=== PATIENT | female | born 1990 | race Caucasian/White ===

== ENCOUNTER 2022-10-06 00:02 | Inpatient (IN) | payer SELFPAY ==
[2022-10-06 01:05] VITALS: BMI 25.8
[2022-10-06] MEDS ORDERED: LACTATED RINGERS SOLUTION 1000 ML INFUS.BAG IV ONE ×2 (02:17→05:21)
[2022-10-06 02:46] LABS: BASO % 0.7 % (0-2.0); EOS % 0.4 % (0-4.5); LYMPH % 23.5 % (8-40); MCHC 34.2 g/dl (32.0-36.0); MEAN CELL VOLUME 87.5 fl (80-96); MEAN PLT VOLUME 8.2 fl (7.5-11.1); MONO % 6.4 % (3.8-10.2); PLATELET COUNT 332 10^3/uL (134-434); RBC 4.34 M/mm3 (3.60-5.2); RDW 12.6 % (11.6-15.6); WHITE BLOOD COUNT 10.8 K/mm3 (4.0-10.0)
[2022-10-06 03:13] LABS: CALCIUM 8.9 mg/dL (8.5-10.1)
[2022-10-06 03:14] LABS: ALBUMIN 3.8 g/dl (3.4-5.0); BLOOD UREA NITROGEN 10.8 mg/dL (7-18)
[2022-10-06 03:17] LABS: CREATININE 0.5 mg/dL (0.55-1.3)
[2022-10-06 03:19] LABS: BILIRUBIN,TOTAL 0.5 mg/dL (0.2-1); TOT PROT 7.4 g/dl (6.4-8.2)
[2022-10-06] MEDS ORDERED: KETOROLAC TROMETHAMINE 15 MG/ML VIAL IVPUSH ONE ×2 (04:29→05:21)
[2022-10-06] MEDS ORDERED: morphine CARPU-JECT 2 MG/1 ML DISP.SYRIN IVPUSH ONE (04:30)
[2022-10-06] MEDS ORDERED: ACETAMINOPHEN 1000 MG/100 ML BAG IVPB ONE (04:45)
[2022-10-06] MEDS ORDERED: KETOROLAC TROMETHAMINE 15 MG/ML VIAL ONE (05:12)
[2022-10-06 06:55] LABS: EPI CELLS 4 /uL (0-25.1); HYALINE CASTS 0 /uL (0-3.1); URINE APPEARANCE CLEAR; URINE BACTERIA >9,000 /uL (0-1359); URINE BILIRUBIN NEGATIVE (NEGATIVE); URINE COLOR YELLOW; URINE GLUCOSE (UA) NEGATIVE (NEGATIVE); URINE KETONE NEGATIVE (NEGATIVE); URINE LEUK ESTERASE TRACE (NEGATIVE); URINE NITRITE NEGATIVE (NEGATIVE); URINE PROTEIN NEGATIVE (NEGATIVE); URINE RBC 215 /uL (0-23.9); URINE UROBILINOGEN 0.2 mg/dL (0.2-1.0); URINE WBC 179 /uL (0-25.8)
[2022-10-06 07:07] LABS: HCG,QUALITATIVE URINE Negative
[2022-10-06] MEDS ORDERED: KETOROLAC TROMETHAMINE 15 MG/ML VIAL IVPUSH PRN (07:43)
[2022-10-06] MEDS ORDERED: ACETAMINOPHEN 1000 MG/100 ML BAG IVPB PRN ×2 (07:43→18:56)
[2022-10-06] MEDS ORDERED: CEFTRIAXONE 1 GM in DEXTROSE 5%-WATER - 50 ML IVPB SCH (07:44)
[2022-10-06] MEDS ORDERED: ACETAMINOPHEN INJECTION 100 ML IVPB ONE (08:22)
[2022-10-06] MEDS ORDERED: ONDANSETRON 4 MG/2 ML VIAL IVPUSH PRN ×4 (08:29→18:56)
[2022-10-06] MEDS ORDERED: TAMSULOSIN HCL 0.4 MG CAP PO SCH (08:30)
[2022-10-06] MEDS ORDERED: CEFTRIAXONE 1 GM/50 ML BAG ONE (08:38)
[2022-10-06] MEDS ORDERED: ONDANSETRON 4 MG/2 ML VIAL ONE ×2 (08:47→18:19)
[2022-10-06] MEDS ORDERED: PROMETHAZINE HCL 25 MG/1 ML VIAL IVPUSH PRN ×2 (16:39→18:56)
[2022-10-06] MEDS ORDERED: LACTATED RINGERS SOLUTION 1,000 ML IV SCH (16:45)
[2022-10-06] MEDS ORDERED: LIDOCAINE HCL/PF 2% SDV 5ML VIAL ONE (17:04)
[2022-10-06] MEDS ORDERED: PROPOFOL 20 ML ONE (17:04)
[2022-10-06] MEDS ORDERED: MIDAZOLAM HCL 2 MG/2 ML SINGLE DOSE VIAL ONE (17:44)
[2022-10-06] MEDS ORDERED: FENTANYL CITRATE/PF 50 MCG/ML VIAL ONE ×3 (17:44→19:41)
[2022-10-06] MEDS ORDERED: GLYCOPYRROLATE 0.2 MG/1 ML VIAL ONE (17:45)
[2022-10-06] MEDS ORDERED: SODIUM CHLORIDE 1,000 ML IV SCH (18:00)
[2022-10-06] MEDS ORDERED: GENTAMICIN SO4 80 MG/2 ML VIAL ONE (18:01)
[2022-10-06] MEDS ORDERED: GENTAMICIN SO4 80 MG/2 ML VIAL IVPB ONE (18:10)
[2022-10-06] MEDS ORDERED: DEXAMETHASONE SOD PHOSPHATE 4 MG/1 ML VIAL ONE (18:19)
[2022-10-06] MEDS ORDERED: KETOROLAC TROMETHAMINE 30 MG/1 ML VIAL ONE (18:19)
[2022-10-07] MEDS: KETOROLAC TROMETHAMINE 15 MG/ML VIAL IVPUSH PRN ×3 (06:01→22:12)
[2022-10-07] MEDS: SODIUM CHLORIDE 1,000 ML IV SCH ×2 (06:01→22:12)
[2022-10-07 09:31] LABS: HEMATOCRIT 30.6 % (32.4-45.2); HEMOGLOBIN 10.5 GM/dL (10.7-15.3); MCH 30.4 pg (25.7-33.7); MCHC 34.3 g/dl (32.0-36.0); MEAN CELL VOLUME 88.6 fl (80-96); MEAN PLT VOLUME 8.3 fl (7.5-11.1); PLATELET COUNT 220 10^3/uL (134-434); RBC 3.46 M/mm3 (3.60-5.2); RDW 13.1 % (11.6-15.6); WHITE BLOOD COUNT 21.5 K/mm3 (4.0-10.0)
[2022-10-07 10:06] LABS: ANISOCYTOSIS 0; HELMET CELLS 0; HOWELL-JOLLY BODIES 0; MACROCYTOSIS 0; OVALOCYTE 0; ROULEAU 0; SICKELED CELLS 0; TARGET CELLS 0; TEAR DROP CELLS 0; TOXIC GRANULATION 0
[2022-10-07 10:33] LABS: BLOOD UREA NITROGEN 10.5 mg/dL (7-18); CALCIUM 8.4 mg/dL (8.5-10.1)
[2022-10-07 10:36] LABS: CREATININE 0.7 mg/dL (0.55-1.3); PHOSPHOROUS 2.8 mg/dL (2.5-4.9)
[2022-10-07] MEDS: CEFTRIAXONE 1 GM in DEXTROSE 5%-WATER - 50 ML IVPB SCH (12:33)
[2022-10-07 22:10] VITALS: RESP 18
[2022-10-08] MEDS: KETOROLAC TROMETHAMINE 15 MG/ML VIAL IVPUSH PRN (05:39)
[2022-10-08 06:14] VITALS: BP 114/69; PULSE 75; TEMP 98.5
[2022-10-08] MEDS: CEFTRIAXONE 1 GM in DEXTROSE 5%-WATER - 50 ML IVPB SCH (09:13)
[2022-10-08] MEDS ORDERED: IBUPROFEN 600 MG TABLET (FP) PO PRN (09:13)
[2022-10-08 09:42] LABS: BASO % 0.2 % (0-2.0); EOS % 0.4 % (0-4.5); HEMATOCRIT 29.3 % (32.4-45.2); HEMOGLOBIN 9.9 GM/dL (10.7-15.3); LYMPH % 21.4 % (8-40); MCH 29.5 pg (25.7-33.7); MCHC 33.9 g/dl (32.0-36.0); MONO % 8.3 % (3.8-10.2); NEUT % 69.7 % (42.8-82.8); PLATELET COUNT 222 10^3/uL (134-434); RBC 3.37 M/mm3 (3.60-5.2); RDW 12.7 % (11.6-15.6); WHITE BLOOD COUNT 11.9 K/mm3 (4.0-10.0)
[2022-10-08 09:56] LABS: BLOOD UREA NITROGEN 11.9 mg/dL (7-18); CALCIUM 8.1 mg/dL (8.5-10.1); MAGNESIUM 1.8 mg/dL (1.8-2.4)
[2022-10-08 09:59] LABS: CREATININE 0.5 mg/dL (0.55-1.3); PHOSPHOROUS 2.8 mg/dL (2.5-4.9)
[2022-10-08 10:01] LABS: BILIRUBIN,TOTAL 0.3 mg/dL (0.2-1); TOT PROT 5.5 g/dl (6.4-8.2)
[2022-10-08 10:10] LABS: ALBUMIN 2.6 g/dl (3.4-5.0)
== END 2022-10-08 02:30 | disposition home or self-care (01) | DRG 463 ==
LOC: JER 00:02 → JERBED 05:27 → OBSVTOIN 07:40 → J7W 09:07
PROVIDERS: ADMIT Internal Medicine; ATTEND Internal Medicine
PROC: 0T768DZ Dilation of Right Ureter with Intraluminal Device, Via Natural or Artificial Opening Endoscopic (ICD-10-PCS; 2022-10-06)
PROC: 0TJB8ZZ Inspection of Bladder, Via Natural or Artificial Opening Endoscopic (ICD-10-PCS; principal; 2022-10-06 17:30)
PROC: BT0BZZZ Plain Radiography of Bladder and Urethra (ICD-10-PCS; 2022-10-06 17:30)
DX: N13.6 Pyonephrosis (principal); N39.0 Urinary tract infection, site not specified
CPT/HCPCS: 0241U-QW; 36415; 74177-TC; 76000-TC-FY; 76830-TC; 80048; 80053; 81003; 83735; 84100; 84703; 85025; 87086; 87186; 93005; 93010; 94760; 99285-25; C2617; G0378

== ENCOUNTER 2023-01-24 11:03 | Inpatient (IN) | payer OTHER ==
[2023-01-24] MEDS ORDERED: morphine CARPU-JECT 2 MG/1 ML DISP.SYRIN IVPUSH ONE ×2 (12:37→15:49)
[2023-01-24] MEDS ORDERED: SODIUM CHLORIDE 0.9% 500 ML INFUS.BAG IV ONE (12:37)
[2023-01-24 12:58] LABS: BASO % 0.2 % (0-2.0); HEMATOCRIT 36.5 % (32.4-45.2); HEMOGLOBIN 12.6 GM/dL (10.7-15.3); LYMPH % 10.2 % (8-40); MCH 29.2 pg (25.7-33.7); MCHC 34.6 g/dl (32.0-36.0); MEAN CELL VOLUME 84.6 fl (80-96); MEAN PLT VOLUME 8.2 fl (7.5-11.1); MONO % 10.1 % (3.8-10.2); NEUT % 79.5 % (42.8-82.8); PLATELET COUNT 254 10^3/uL (134-434); RBC 4.32 M/mm3 (3.60-5.2); RDW 12.9 % (11.6-15.6); WHITE BLOOD COUNT 8.6 K/mm3 (4.0-10.0)
[2023-01-24 13:05] LABS: EPI CELLS >36 /uL (0-25.1); HYALINE CASTS 2 /uL (0-3.1); URINE APPEARANCE TURBID; URINE BACTERIA >9,000 /uL (0-1359); URINE BILIRUBIN NEGATIVE (NEGATIVE); URINE COLOR YELLOW; URINE GLUCOSE (UA) NEGATIVE (NEGATIVE); URINE KETONE TRACE (NEGATIVE); URINE LEUK ESTERASE 3+ (NEGATIVE); URINE NITRITE NEGATIVE (NEGATIVE); URINE PROTEIN 2+ (NEGATIVE); URINE RBC 220 /uL (0-23.9); URINE UROBILINOGEN 0.2 mg/dL (0.2-1.0); URINE WBC 3832 /uL (0-25.8)
[2023-01-24] MEDS ORDERED: ACETAMINOPHEN 1000 MG/100 ML BAG IVPB ONE (13:14)
[2023-01-24] MEDS ORDERED: CEFTRIAXONE 1 GM in DEXTROSE 5%-WATER - 100 ML IVPB ONE (13:14)
[2023-01-24] MEDS ORDERED: ACETAMINOPHEN INJECTION 100 ML IVPB ONE (13:15)
[2023-01-24] MEDS ORDERED: CEFTRIAXONE 1 GM/50 ML BAG ONE (13:19)
[2023-01-24 13:21] LABS: CALCIUM 8.9 mg/dL (8.5-10.1)
[2023-01-24 13:22] LABS: ALBUMIN 3.8 g/dl (3.4-5.0); BLOOD UREA NITROGEN 8.5 mg/dL (7-18)
[2023-01-24 13:25] LABS: CREATININE 0.6 mg/dL (0.55-1.3)
[2023-01-24 13:27] LABS: BILIRUBIN,TOTAL 0.6 mg/dL (0.2-1); TOT PROT 7.7 g/dl (6.4-8.2)
[2023-01-24] MEDS ORDERED: TAMSULOSIN HCL 0.4 MG CAP PO ONE (15:50)
[2023-01-24] MEDS ORDERED: KETOROLAC TROMETHAMINE 30 MG/1 ML VIAL IVPUSH ONE (15:50)
[2023-01-24] MEDS ORDERED: TAMSULOSIN HCL 0.4 MG CAP ONE (15:52)
[2023-01-24] MEDS ORDERED: KETOROLAC TROMETHAMINE 30 MG/1 ML VIAL ONE (15:53)
[2023-01-24] MEDS ORDERED: KETOROLAC TROMETHAMINE 15 MG/ML VIAL IVPUSH PRN (17:15)
[2023-01-24] MEDS ORDERED: SODIUM CHLORIDE 1,000 ML IV SCH (17:15)
[2023-01-24] MEDS ORDERED: morphine CARPU-JECT 2 MG/1 ML DISP.SYRIN IVPUSH PRN (17:15)
[2023-01-24] MEDS ORDERED: ONDANSETRON 4 MG/2 ML VIAL IVPUSH PRN (17:15)
[2023-01-25 01:13] VITALS: BMI 24.2
[2023-01-25] MEDS ORDERED: ACETAMINOPHEN 1000 MG/100 ML BAG IVPB PRN ×2 (07:52→17:21)
[2023-01-25 08:46] LABS: INR 1.32 (0.83-1.09); PROTHROMBIN TIME (PATIENT) 15.3 SEC (9.7-13.0)
[2023-01-25 08:49] LABS: ACTIVATED PTT 25.2 SECONDS (25.2-36.5)
[2023-01-25 09:02] LABS: BASO % 0.3 % (0-2.0); EOS % 0.1 % (0-4.5); HEMOGLOBIN 10.9 GM/dL (10.7-15.3); LYMPH % 23.5 % (8-40); MCH 29.2 pg (25.7-33.7); MCHC 34.1 g/dl (32.0-36.0); MEAN CELL VOLUME 85.7 fl (80-96); MEAN PLT VOLUME 8.2 fl (7.5-11.1); MONO % 10.6 % (3.8-10.2); NEUT % 65.5 % (42.8-82.8); PLATELET COUNT 214 10^3/uL (134-434); RBC 3.74 M/mm3 (3.60-5.2); RDW 12.9 % (11.6-15.6); WHITE BLOOD COUNT 7.3 K/mm3 (4.0-10.0)
[2023-01-25 09:03] LABS: MAGNESIUM 1.9 mg/dL (1.8-2.4)
[2023-01-25 09:04] LABS: BLOOD UREA NITROGEN 10.5 mg/dL (7-18)
[2023-01-25 09:06] LABS: CREATININE 0.6 mg/dL (0.55-1.3); PHOSPHOROUS 2.1 mg/dL (2.5-4.9)
[2023-01-25 09:08] LABS: BILIRUBIN,TOTAL 0.7 mg/dL (0.2-1); TOT PROT 6.6 g/dl (6.4-8.2)
[2023-01-25] MEDS ORDERED: CEFTRIAXONE 1 GM in DEXTROSE 5%-WATER - 50 ML IVPB SCH (10:00)
[2023-01-25] MEDS ORDERED: PROMETHAZINE HCL 25 MG/1 ML VIAL IVPB PRN ×2 (16:21→17:21)
[2023-01-25] MEDS ORDERED: oxyCODONE HCL 5 MG TABLET PO PRN ×4 (16:21→17:21)
[2023-01-25] MEDS ORDERED: PROPOFOL 20 ML ONE ×2 (16:25→16:48)
[2023-01-25] MEDS ORDERED: LACTATED RINGERS SOLUTION 1,000 ML IV SCH (16:30)
[2023-01-25] MEDS ORDERED: ceFAZolin SODIUM 1 GM VIAL ONE (16:35)
[2023-01-25] MEDS ORDERED: ONDANSETRON 4 MG/2 ML VIAL ONE (16:35)
[2023-01-25] MEDS ORDERED: LIDOCAINE HCL/PF 2% SDV 5ML VIAL ONE (16:35)
[2023-01-25] MEDS ORDERED: ceFAZolin SODIUM 1 GM VIAL IVPB ONE (16:35)
[2023-01-25] MEDS ORDERED: DEXAMETHASONE SOD PHOSPHATE 4 MG/1 ML VIAL ONE (16:35)
[2023-01-25] MEDS ORDERED: KETOROLAC TROMETHAMINE 15 MG/ML VIAL IVPUSH PRN (17:21)
[2023-01-25] MEDS ORDERED: ONDANSETRON 4 MG/2 ML VIAL IVPUSH PRN (17:21)
[2023-01-25] MEDS: LACTATED RINGERS SOLUTION 1,000 ML IV SCH (18:05)
[2023-01-25] MEDS ORDERED: MELATONIN 5 MG TABLETS PO ONE (21:57)
[2023-01-26] MEDS: LACTATED RINGERS SOLUTION 1,000 ML IV SCH ×2 (03:17→12:19)
[2023-01-26 09:47] LABS: BASO % 0.1 % (0-2.0); HEMATOCRIT 31.6 % (32.4-45.2); LYMPH % 21.2 % (8-40); MCH 29.5 pg (25.7-33.7); MEAN CELL VOLUME 84.4 fl (80-96); MEAN PLT VOLUME 8.7 fl (7.5-11.1); MONO % 6.9 % (3.8-10.2); NEUT % 71.8 % (42.8-82.8); PLATELET COUNT 218 10^3/uL (134-434); RBC 3.74 M/mm3 (3.60-5.2); RDW 12.6 % (11.6-15.6); WHITE BLOOD COUNT 6.3 K/mm3 (4.0-10.0)
[2023-01-26] MEDS ORDERED: CEFTRIAXONE 1 GM in DEXTROSE 5%-WATER - 50 ML IVPB SCH (10:00)
[2023-01-26 10:08] LABS: CALCIUM 8.6 mg/dL (8.5-10.1)
[2023-01-26 10:12] LABS: CREATININE 0.5 mg/dL (0.55-1.3)
[2023-01-26 10:16] LABS: BLOOD UREA NITROGEN 10.5 mg/dL (7-18)
[2023-01-26 15:23] VITALS: BP 103/59; PULSE 84; RESP 18; TEMP 98.1
[2023-01-26] MEDS ORDERED: AMOX TR/POT CLAV 875MG/125MG TABLETS (FP) PO SCH (17:30)
== END 2023-01-26 17:28 | disposition home or self-care (01) | DRG 443 ==
LOC: JER 11:03 → INTOOBSV 16:13 → UNDOADMOB 16:13 → JERBED 16:13 → J5S 20:11 → JERBED 20:11 → OBSVTOIN 01-25 13:41
PROVIDERS: ADMIT Internal Medicine; ATTEND Internal Medicine
PROC: 0TP98DZ Removal of Intraluminal Device from Ureter, Via Natural or Artificial Opening Endoscopic (ICD-10-PCS; principal; 2023-01-25 15:00)
PROC: 0T768DZ Dilation of Right Ureter with Intraluminal Device, Via Natural or Artificial Opening Endoscopic (ICD-10-PCS; 2023-01-25 15:00)
DX: N13.6 Pyonephrosis (principal); D64.9 Anemia, unspecified
CPT/HCPCS: 36415; 74176-TC; 76000-TC-FY; 80048; 80053; 81003; 83605; 83735; 84100; 84703; 85025; 85610; 85730; 87040; 87077; 87086; 93005; 93010; 94760; 99285-25; C1758; C2617; C9803-CS; G0378; U0003; U0005

== ENCOUNTER 2023-12-08 23:31 | Inpatient (IN) | payer OTHER ==
[2023-12-09] MEDS ORDERED: ONDANSETRON 4 MG/2 ML VIAL ONE (00:50)
[2023-12-09] MEDS ORDERED: ACETAMINOPHEN INJECTION 100 ML IVPB ONE (00:50)
[2023-12-09 00:52] LABS: EPI CELLS 8 /uL (0-25.1); HYALINE CASTS 1 /uL (0-3.1); PH,URINE 6.5 (5.0-8.0); URINE APPEARANCE CLOUDY; URINE BACTERIA 2533 /uL (0-1359); URINE BILIRUBIN NEGATIVE (NEGATIVE); URINE COLOR YELLOW; URINE GLUCOSE (UA) NEGATIVE (NEGATIVE); URINE KETONE NEGATIVE (NEGATIVE); URINE LEUK ESTERASE 3+ (NEGATIVE); URINE NITRITE POSITIVE (NEGATIVE); URINE PROTEIN TRACE (NEGATIVE); URINE RBC 20 /uL (0-23.9); URINE UROBILINOGEN 0.2 mg/dL (0.2-1.0); URINE WBC 343 /uL (0-25.8)
[2023-12-09 00:54] LABS: BASO % 0.8 % (0-2.0); HEMATOCRIT 38.7 % (32.4-45.2); MCH 29.2 pg (25.7-33.7); MCHC 33.7 g/dl (32.0-36.0); MEAN CELL VOLUME 86.6 fl (80-96); MEAN PLT VOLUME 8.4 fl (7.5-11.1); MONO % 6.1 % (3.8-10.2); NEUT % 50.1 % (42.8-82.8); PLATELET COUNT 277 10^3/uL (134-434); RBC 4.47 M/mm3 (3.60-5.2); RDW 12.6 % (11.6-15.6); WHITE BLOOD COUNT 8.5 K/mm3 (4.0-10.0)
[2023-12-09] MEDS: ACETAMINOPHEN 1000 MG/100 ML BAG IVPB ONE (00:57)
[2023-12-09] MEDS: ONDANSETRON 4 MG/2 ML VIAL IVPUSH ONE (00:57)
[2023-12-09] MEDS ORDERED: morphine SULFATE 4 MG/ML VIAL ONE (01:16)
[2023-12-09] MEDS ORDERED: CEFTRIAXONE 1 GM/50 ML BAG ONE (01:16)
[2023-12-09] MEDS ORDERED: FAMOTIDINE 20 MG/50 ML IVPB 20 MG/50 ML MG IVPB ONE (01:16)
[2023-12-09] MEDS: morphine CARPU-JECT 4 MG/1 ML DISP.SYRIN IVPUSH ONE ×2 (01:27→12:41)
[2023-12-09] MEDS: CEFTRIAXONE 1,000 MG in DEXTROSE 5%-WATER - 50 ML IVPB ONE (01:27)
[2023-12-09 01:44] LABS: POTASSIUM 4.2 mmol/L (3.5-5.1)
[2023-12-09 01:48] LABS: ALBUMIN 3.7 g/dl (3.4-5.0); BLOOD UREA NITROGEN 9.4 mg/dL (7-18)
[2023-12-09 01:50] LABS: PHOSPHOROUS 4.2 mg/dL (2.5-4.9)
[2023-12-09 01:51] LABS: CREATININE 0.7 mg/dL (0.55-1.3)
[2023-12-09 01:52] LABS: BILIRUBIN,TOTAL 0.2 mg/dL (0.2-1); TOT PROT 7.8 g/dl (6.4-8.2)
[2023-12-09] MEDS: FAMOTIDINE 20 MG/50 ML IVPB 20 MG/50 ML MG IVPB ONE (01:52)
[2023-12-09] MEDS: SODIUM CHLORIDE 0.9% 500 ML INFUS.BAG IV ONE (02:18)
[2023-12-09] MEDS ORDERED: KETOROLAC TROMETHAMINE 15 MG/ML VIAL ONE (11:39)
[2023-12-09] MEDS: LACTATED RINGERS SOLUTION 1,000 ML/1,000 ML INFUS.BAG IV SCH (11:47)
[2023-12-09 15:08] VITALS: BMI 25.4
[2023-12-09] MEDS: ACETAMINOPHEN 500 MG TABLET (FP) PO PRN (19:50)
[2023-12-10 09:28] LABS: BASO % 0.5 % (0-2.0); HEMATOCRIT 35.4 % (32.4-45.2); HEMOGLOBIN 12.1 GM/dL (10.7-15.3); MCH 29.4 pg (25.7-33.7); MCHC 34.2 g/dl (32.0-36.0); MEAN CELL VOLUME 86.2 fl (80-96); MEAN PLT VOLUME 8.8 fl (7.5-11.1); MONO % 5.6 % (3.8-10.2); NEUT % 53.9 % (42.8-82.8); PLATELET COUNT 248 10^3/uL (134-434); RBC 4.11 M/mm3 (3.60-5.2); RDW 12.6 % (11.6-15.6); WHITE BLOOD COUNT 5.3 K/mm3 (4.0-10.0)
[2023-12-10] MEDS: CEFTRIAXONE 1 GM in DEXTROSE 5%-WATER - 50 ML IVPB SCH (09:37)
[2023-12-10] MEDS: TAMSULOSIN HCL 0.4 MG CAP PO SCH (09:37)
[2023-12-10 09:52] LABS: POTASSIUM 3.8 mmol/L (3.5-5.1)
[2023-12-10 09:55] LABS: BLOOD UREA NITROGEN 12.2 mg/dL (7-18); CALCIUM 8.6 mg/dL (8.5-10.1)
[2023-12-10 09:58] LABS: CREATININE 0.6 mg/dL (0.55-1.3)
[2023-12-10] MEDS: KETOROLAC TROMETHAMINE 15 MG/ML VIAL IVPUSH PRN (16:50)
[2023-12-11] MEDS: MELATONIN 1 MG TABLET PO ONE ×2 (00:15→22:48)
[2023-12-11 11:13] LABS: HEMATOCRIT 35.2 % (32.4-45.2); HEMOGLOBIN 12.2 GM/dL (10.7-15.3); MCH 29.8 pg (25.7-33.7); MCHC 34.8 g/dl (32.0-36.0); MEAN CELL VOLUME 85.9 fl (80-96); MEAN PLT VOLUME 8.9 fl (7.5-11.1); PLATELET COUNT 256 10^3/uL (134-434); RBC 4.09 M/mm3 (3.60-5.2); RDW 12.8 % (11.6-15.6); WHITE BLOOD COUNT 5.3 K/mm3 (4.0-10.0)
[2023-12-11 11:58] LABS: CALCIUM 9.2 mg/dL (8.5-10.1)
[2023-12-11 12:00] LABS: BLOOD UREA NITROGEN 14.2 mg/dL (7-18)
[2023-12-11 12:02] LABS: CREATININE 0.6 mg/dL (0.55-1.3)
[2023-12-11] MEDS ORDERED: ONDANSETRON 4 MG/2 ML VIAL IVPUSH PRN (16:24)
[2023-12-11] MEDS ORDERED: PROMETHAZINE HCL 25 MG/1 ML VIAL IVPB PRN (16:24)
[2023-12-11] MEDS ORDERED: LACTATED RINGERS SOLUTION 1,000 ML IV SCH (16:30)
[2023-12-11] MEDS ORDERED: MIDAZOLAM HCL 2 MG/2 ML SINGLE DOSE VIAL ONE (17:20)
[2023-12-11] MEDS ORDERED: PROPOFOL 20 ML ONE (17:20)
[2023-12-11] MEDS: LACTATED RINGERS SOLUTION 1,000 ML IV SCH (18:10)
[2023-12-11 20:53] VITALS: RESP 18
[2023-12-12 08:37] VITALS: BP 113/56; PULSE 82; TEMP 98.2
[2023-12-12] MEDS: traMADol HCL 50 MG TABLET PO PRN (09:18)
[2023-12-12 09:40] LABS: BASO % 0.2 % (0-2.0); HEMATOCRIT 32.8 % (32.4-45.2); HEMOGLOBIN 11.6 GM/dL (10.7-15.3); LYMPH % 18.6 % (8-40); MCH 30.2 pg (25.7-33.7); MCHC 35.4 g/dl (32.0-36.0); MEAN CELL VOLUME 85.2 fl (80-96); MEAN PLT VOLUME 8.9 fl (7.5-11.1); MONO % 2.3 % (3.8-10.2); NEUT % 78.9 % (42.8-82.8); PLATELET COUNT 250 10^3/uL (134-434); RBC 3.85 M/mm3 (3.60-5.2); RDW 12.5 % (11.6-15.6); WHITE BLOOD COUNT 10.5 K/mm3 (4.0-10.0)
[2023-12-12 10:08] LABS: BLOOD UREA NITROGEN 12.1 mg/dL (7-18)
[2023-12-12 10:10] LABS: ALBUMIN 3.2 g/dl (3.4-5.0)
[2023-12-12 10:14] LABS: CREATININE 0.6 mg/dL (0.55-1.3)
[2023-12-12 10:15] LABS: BILIRUBIN,TOTAL 0.4 mg/dL (0.2-1); TOT PROT 6.4 g/dl (6.4-8.2)
[2023-12-12] MEDS: POLYETHYLENE GLYCOL (HEALTHYLAX) 3350 17 GM PACKET PO ONE (11:10)
[2023-12-12] MEDS ORDERED: MELATONIN 1 MG TABLET PO ONE (22:02)
== END 2023-12-12 16:28 | disposition home or self-care (01) | DRG 466 ==
LOC: JER 23:31 → JERBED 12-09 06:09 → J6S 12-09 14:40
PROVIDERS: ADMIT Internal Medicine; ATTEND Internal Medicine
PROC: BT1DZZZ Fluoroscopy of Right Kidney, Ureter and Bladder (ICD-10-PCS; 2023-12-11)
PROC: 0T768DZ Dilation of Right Ureter with Intraluminal Device, Via Natural or Artificial Opening Endoscopic (ICD-10-PCS; principal; 2023-12-11 13:00)
DX: T83.122A Displacement of indwelling ureteral stent, initial encounter (principal); T83.192A Other mechanical complication of indwelling ureteral stent, initial encounter; Z96.0 Presence of urogenital implants; N13.6 Pyonephrosis; N20.0 Calculus of kidney; Y83.8 Other surgical procedures as the cause of abnormal reaction of the patient, or of later complication, without mention of misadventure at the time of the procedure
CPT/HCPCS: 36415; 74176-TC; 76000-TC-FY; 80048; 80053; 81003; 83735; 84100; 84703; 85025; 85027; 86850; 86900; 86901; 87086; 93005; 93010; 94760; 99285-25; C1758; C2617; J0131

== ENCOUNTER 2023-12-18 11:21 | Emergency (ER) | payer OTHER ==
[2023-12-18 11:56] VITALS: BP 142/88; PULSE 99; RESP 18; TEMP 97.6; BMI 25.8
[2023-12-18 12:38] LABS: EPI CELLS >36 /uL (0-25.1); HYALINE CASTS 0 /uL (0-3.1); URINE APPEARANCE CLOUDY; URINE BACTERIA 305 /uL (0-1359); URINE BILIRUBIN NEGATIVE (NEGATIVE); URINE COLOR DK YELLOW; URINE GLUCOSE (UA) NEGATIVE (NEGATIVE); URINE KETONE NEGATIVE (NEGATIVE); URINE LEUK ESTERASE 3+ (NEGATIVE); URINE NITRITE NEGATIVE (NEGATIVE); URINE PROTEIN 2+ (NEGATIVE); URINE RBC 1941 /uL (0-23.9); URINE UROBILINOGEN 0.2 mg/dL (0.2-1.0); URINE WBC 1024 /uL (0-25.8)
[2023-12-18] MEDS ORDERED: KETOROLAC TROMETHAMINE 30 MG/1 ML VIAL ONE ×2 (14:13→14:15)
[2023-12-18] MEDS: SODIUM CHLORIDE 0.9% 500 ML INFUS.BAG IV ONE (14:17)
[2023-12-18] MEDS: KETOROLAC TROMETHAMINE 30 MG/1 ML VIAL IVPUSH ONE (14:17)
[2023-12-18 14:19] LABS: BASO % 1.1 % (0-2.0); EOS % 2.3 % (0-4.5); HEMATOCRIT 39.6 % (32.4-45.2); HEMOGLOBIN 13.5 GM/dL (10.7-15.3); LYMPH % 40.8 % (8-40); MCH 29.7 pg (25.7-33.7); MCHC 34.2 g/dl (32.0-36.0); MEAN CELL VOLUME 86.8 fl (80-96); MEAN PLT VOLUME 8.3 fl (7.5-11.1); MONO % 6.8 % (3.8-10.2); PLATELET COUNT 333 10^3/uL (134-434); RBC 4.56 M/mm3 (3.60-5.2); RDW 12.5 % (11.6-15.6); WHITE BLOOD COUNT 7.1 K/mm3 (4.0-10.0)
[2023-12-18 14:40] LABS: POTASSIUM 3.9 mmol/L (3.5-5.1)
[2023-12-18 14:41] LABS: BLOOD UREA NITROGEN 12.4 mg/dL (7-18); CALCIUM 9.4 mg/dL (8.5-10.1)
[2023-12-18 14:45] LABS: CREATININE 0.6 mg/dL (0.55-1.3)
== END 2023-12-18 17:14 | disposition home or self-care (01) ==
LOC: JER 11:21
PROC: 3E033NZ Introduction of Analgesics, Hypnotics, Sedatives into Peripheral Vein, Percutaneous Approach (ICD-10-PCS; principal; 2023-12-18)
DX: M54.9 Dorsalgia, unspecified (principal); N13.39 Other hydronephrosis; N20.0 Calculus of kidney
CPT/HCPCS: 36415; 74176-TC; 80048; 81003; 84703; 85025; 87086; 99284-25

== ENCOUNTER 2024-07-11 15:51 | Inpatient (IN) | payer OTHER ==
[2024-07-11] MEDS ORDERED: ACETAMINOPHEN INJECTION 100 ML ONE (17:19)
[2024-07-11 17:20] LABS: BASO % 0.5 % (0-2.0); EOS % 0.3 % (0-4.5); HEMOGLOBIN 13.2 GM/dL (10.7-15.3); LYMPH % 17.2 % (8-40); MCHC 34.7 g/dl (32.0-36.0); MEAN CELL VOLUME 86.4 fl (80-96); MEAN PLT VOLUME 8.2 fl (7.5-11.1); MONO % 8.8 % (3.8-10.2); NEUT % 73.2 % (42.8-82.8); PLATELET COUNT 308 10^3/uL (134-434); RDW 13.3 % (11.6-15.6); WHITE BLOOD COUNT 8.1 K/mm3 (4.0-10.0)
[2024-07-11 17:28] LABS: HCG,QUALITATIVE URINE Negative
[2024-07-11 17:34] LABS: EPI CELLS 23 /uL (0-25.1); HYALINE CASTS 0 /uL (0-3.1); PH,URINE 6.5 (5.0-8.0); URINE APPEARANCE CLOUDY; URINE BACTERIA >9,000 /uL (0-1359); URINE BILIRUBIN NEGATIVE (NEGATIVE); URINE COLOR DK YELLOW; URINE GLUCOSE (UA) NEGATIVE (NEGATIVE); URINE KETONE NEGATIVE (NEGATIVE); URINE LEUK ESTERASE 3+ (NEGATIVE); URINE NITRITE POSITIVE (NEGATIVE); URINE PROTEIN 1+ (NEGATIVE); URINE WBC 1147 /uL (0-25.8)
[2024-07-11 17:37] LABS: POTASSIUM 4.4 mmol/L (3.5-5.1)
[2024-07-11 17:39] LABS: ALBUMIN 3.9 g/dl (3.4-5.0); CALCIUM 9.5 mg/dL (8.5-10.1)
[2024-07-11 17:40] LABS: BLOOD UREA NITROGEN 11.3 mg/dL (7-18)
[2024-07-11 17:42] LABS: CREATININE 0.7 mg/dL (0.55-1.3)
[2024-07-11 17:44] LABS: BILIRUBIN,TOTAL 0.8 mg/dL (0.2-1); TOT PROT 7.9 g/dl (6.4-8.2)
[2024-07-11] MEDS: SODIUM CHLORIDE 1,000 ML IV STA (18:01)
[2024-07-11] MEDS: ACETAMINOPHEN 1000 MG/100 ML BAG IVPB ONE (18:02)
[2024-07-11 18:45] LABS: HIV INTERPRETATION NEGATIVE (NEGATIVE)
[2024-07-11] MEDS ORDERED: CEFTRIAXONE 1 GM/50 ML BAG ONE (18:46)
[2024-07-11] MEDS: CEFTRIAXONE 1 GM in DEXTROSE 5%-WATER - 100 ML IVPB ONE (18:50)
[2024-07-11] MEDS ORDERED: KETOROLAC TROMETHAMINE 30 MG/1 ML VIAL ONE (20:37)
[2024-07-11] MEDS: KETOROLAC TROMETHAMINE 15 MG/ML VIAL IVPUSH ONE (20:40)
[2024-07-11] MEDS ORDERED: morphine SULFATE 4 MG/ML VIAL ONE (22:06)
[2024-07-11] MEDS: morphine CARPU-JECT 4 MG/1 ML DISP.SYRIN IVPUSH ONE (22:10)
[2024-07-11 22:11] LABS: URINE RBC 83.8 /uL (0-23.9); YEAST NEGATIVE (NEGATIVE)
[2024-07-12] MEDS ORDERED: ACETAMINOPHEN INJECTION 100 ML ONE (01:48)
[2024-07-12] MEDS: ONDANSETRON 4 MG/2 ML VIAL IVPUSH PRN (01:55)
[2024-07-12] MEDS: ACETAMINOPHEN 1000 MG/100 ML BAG IVPB PRN ×2 (01:55→17:43)
[2024-07-12] MEDS ORDERED: morphine SULFATE 4 MG/ML VIAL IVPUSH PRN (03:04)
[2024-07-12 03:30] VITALS: BMI 26.8
[2024-07-12] MEDS: SODIUM CHLORIDE 1,000 ML IV SCH ×2 (03:44→17:09)
[2024-07-12] MEDS: ENOXAPARIN NA (PORCINE) 40 MG/0.4 ML DISP.SYRIN SQ SCH (09:11)
[2024-07-12] MEDS: TAMSULOSIN HCL 0.4 MG CAP PO SCH (09:11)
[2024-07-12] MEDS: CEFTRIAXONE 1 GM in DEXTROSE 5%-WATER - 50 ML IVPB SCH (09:11)
[2024-07-12 10:27] LABS: HEMATOCRIT 33.1 % (32.4-45.2); HEMOGLOBIN 11.2 GM/dL (10.7-15.3); MCH 29.8 pg (25.7-33.7); MCHC 33.8 g/dl (32.0-36.0); MEAN CELL VOLUME 88.3 fl (80-96); MEAN PLT VOLUME 8.1 fl (7.5-11.1); PLATELET COUNT 220 10^3/uL (134-434); RBC 3.75 M/mm3 (3.60-5.2); RDW 13.1 % (11.6-15.6); WHITE BLOOD COUNT 6.1 K/mm3 (4.0-10.0)
[2024-07-12 10:32] LABS: INR 1.13 (0.83-1.09); PROTHROMBIN TIME (PATIENT) 12.9 SEC (9.7-13.0)
[2024-07-12 10:34] LABS: ACTIVATED PTT 28.2 SECONDS (25.2-36.5)
[2024-07-12 10:51] LABS: POTASSIUM 3.7 mmol/L (3.5-5.1)
[2024-07-12 10:56] LABS: ALBUMIN 3.2 g/dl (3.4-5.0); CALCIUM 8.6 mg/dL (8.5-10.1)
[2024-07-12 10:57] LABS: BLOOD UREA NITROGEN 10.4 mg/dL (7-18)
[2024-07-12 11:00] LABS: CREATININE 0.6 mg/dL (0.55-1.3); PHOSPHOROUS 2.4 mg/dL (2.5-4.9)
[2024-07-12 11:01] LABS: BILIRUBIN,TOTAL 0.6 mg/dL (0.2-1); TOT PROT 6.4 g/dl (6.4-8.2)
[2024-07-12] MEDS: SODIUM PHOSPHATE - 10 MM in DEXTROSE 5%-WATER - 250 ML IVPB ONE (13:30)
[2024-07-12] MEDS ORDERED: SODIUM CHLORIDE 1,000 ML IV STA (14:34)
[2024-07-12] MEDS ORDERED: MIDAZOLAM HCL 2 MG/2 ML SINGLE DOSE VIAL ONE (15:29)
[2024-07-12] MEDS ORDERED: PROPOFOL 20 ML ONE (15:30)
[2024-07-12] MEDS: GENTAMICIN 80MG PREMIX BAG IVPB ONE (15:35)
[2024-07-12] MEDS ORDERED: GENTAMICIN SO4 80 MG/2 ML VIAL ONE (15:35)
[2024-07-12] MEDS ORDERED: ONDANSETRON 4 MG/2 ML VIAL ONE (15:48)
[2024-07-12] MEDS ORDERED: ONDANSETRON 4 MG/2 ML VIAL IVPUSH PRN ×2 (16:00→16:05)
[2024-07-12 17:08] VITALS: RESP 18
[2024-07-12] MEDS: LACTATED RINGERS SOLUTION 1,000 ML IV SCH (17:09)
[2024-07-13 09:47] LABS: HEMATOCRIT 33.8 % (32.4-45.2); HEMOGLOBIN 11.5 GM/dL (10.7-15.3); MCH 29.6 pg (25.7-33.7); MEAN CELL VOLUME 87.1 fl (80-96); MEAN PLT VOLUME 8.1 fl (7.5-11.1); PLATELET COUNT 221 10^3/uL (134-434); RBC 3.88 M/mm3 (3.60-5.2); RDW 13.1 % (11.6-15.6); WHITE BLOOD COUNT 4.3 K/mm3 (4.0-10.0)
[2024-07-13 10:07] LABS: POTASSIUM 3.4 mmol/L (3.5-5.1)
[2024-07-13 10:09] LABS: ALBUMIN 3.1 g/dl (3.4-5.0); BLOOD UREA NITROGEN 5.9 mg/dL (7-18); CALCIUM 8.4 mg/dL (8.5-10.1)
[2024-07-13 10:12] LABS: CREATININE 0.6 mg/dL (0.55-1.3)
[2024-07-13 10:14] LABS: BILIRUBIN,TOTAL 0.3 mg/dL (0.2-1); TOT PROT 6.5 g/dl (6.4-8.2)
[2024-07-13] MEDS: TAMSULOSIN HCL 0.4 MG CAP PO SCH (10:23)
[2024-07-13] MEDS: CEFTRIAXONE 1 GM in DEXTROSE 5%-WATER - 50 ML IVPB SCH (10:23)
[2024-07-13] MEDS: ENOXAPARIN NA (PORCINE) 40 MG/0.4 ML DISP.SYRIN SQ SCH (10:23)
[2024-07-13 14:32] VITALS: BP 109/74; PULSE 94; TEMP 99.1
== END 2024-07-13 17:19 | disposition home or self-care (01) | DRG 661 ==
LOC: JER 15:51 → JERBED 21:55 → J6S 07-12 03:53
PROVIDERS: ADMIT Internal Medicine; ATTEND Internal Medicine
PROC: 0T768DZ Dilation of Right Ureter with Intraluminal Device, Via Natural or Artificial Opening Endoscopic (ICD-10-PCS; principal; 2024-07-12 08:30)
PROC: BT1DZZZ Fluoroscopy of Right Kidney, Ureter and Bladder (ICD-10-PCS; 2024-07-12 08:30)
DX: N13.6 Pyonephrosis (principal)
CPT/HCPCS: 36415; 74177-TC; 76000-TC-FY; 80053; 81003; 83690; 83735; 84100; 84702; 84703; 85025; 85027; 85610; 85730; 86803; 86850; 86900; 86901; 87086; 87186; 87389; 94760; 99285-25; C2617; J0131